=== PATIENT | male | born 1990 | race Caucasian/White ===

== ENCOUNTER → 2017-10-13 | Outpatient (CLI) | payer OTHER ==
--- NOTE | 2017-10-13 13:52 | DIAGNOSTIC IMAGING REPORT ---
MRI OF THE LEFT KNEE WITHOUT CONTRAST CLINICAL HISTORY: Left knee pain following fall. Evaluate for patellar tendon rupture. COMPARISON STUDY: None. TECHNIQUE: Utilizing a 1.5 Cyn magnet and dedicated coil, multiplanar, multiecho imaging of the left knee was performed without intravenous or intraarticular contrast. FINDINGS: Alignment of the left knee is anatomic. The distal quadriceps tendon is redundant due to a complete tear of the proximal to mid aspect of the patellar tendon. The tear is located 2.2 cm distal to the tendon origin. The two tendon fragments are adjacent to one another but appear discontiguous. The patellar tendon is redundant as expected. There is marked adjacent soft tissue edema as well as a moderate-sized left knee joint effusion effusion. There is no evidence for fracture. There is no marrow replacement. Of note, there is a tear of the medial patellofemoral ligament and medial retinaculum. Moderate chondrosis within the medial patellar cartilage is noted. There is mild to moderate chondrosis within the lateral cochlear cartilage. Cartilage within the medial and lateral compartments is preserved. The anterior and posterior cruciate ligaments are intact. The medial collateral ligament and lateral collateral ligament complex are intact. There is oblique signal within the posterior horn of the lateral meniscus. No definite meniscal tear is identified. IMPRESSION: 1. Acute complete tear of the proximal to mid patellar tendon. The proximal and distal tendon fragments are adjacent to one another however completely torn. Marked associated soft tissue edema and moderate size right knee joint effusion. 2. Tear of the medial patellofemoral ligament and medial retinaculum which is age indeterminate. 3. Moderate patellofemoral chondrosis. Electronically signed by: Gonzalo Ferreira M.D. 10/13/2017 1:51 PM Dictated Date/Time: 10/13/2017 1:37 PM
== END | disposition home or self-care (01) ==
LOC: C.MRIBC 12:39
PROVIDERS: ATTEND Orthopaedic Surgery Sports Medicine
DX: S86.812A Strain of other muscle(s) and tendon(s) at lower leg level, left leg, initial encounter (principal); X58.XXXA Exposure to other specified factors, initial encounter; S83.412A Sprain of medial collateral ligament of left knee, initial encounter